=== PATIENT | male | born 1995 | race Caucasian/White ===

== ENCOUNTER 2016-10-12 13:05 | Emergency (ER) | payer OTHER ==
[~2016-10-12] VITALS: Ht 167.6 cm; Wt 60.0 kg
[~2016-10-12 13:05] MED LIST: MO4B PO
[2016-10-12] MEDS ORDERED: IBUPROFEN 600 MG TABLET PO ONE (14:45)
[2016-10-12 14:59] VITALS: BP 106/61
== END 2016-10-12 15:01 | disposition home or self-care (01) ==
LOC: EMS 13:06
DX: S01.511A Laceration without foreign body of lip, initial encounter (principal); S16.1XXA Strain of muscle, fascia and tendon at neck level, initial encounter; F12.90 Cannabis use, unspecified, uncomplicated; V49.9XXA Car occupant (driver) (passenger) injured in unspecified traffic accident, initial encounter; Y93.89 Activity, other specified; Y92.488 Other paved roadways as the place of occurrence of the external cause; Y99.8 Other external cause status
CPT/HCPCS: 99283